=== PATIENT | male | born 1965 | race African-American/Black ===

== ENCOUNTER 2022-10-16 08:35 | Emergency (ER) | payer OTHER ==
[2022-10-16] VITALS (9 sets, daily range): BP systolic 92–142; BP diastolic 54–78
[~2022-10-16] VITALS: Ht 185.4 cm; Wt 127.0 kg
[~2022-10-16 08:35] MED LIST: AUGMENTIN875TAB PO
[2022-10-16] MEDS ORDERED: KEFLEX500 MG PO (10:27)
== END 2022-10-16 11:03 | disposition home or self-care (01) | DRG 605 ==
LOC: ED 08:35
DX: S91.115A Laceration without foreign body of left lesser toe(s) without damage to nail, initial encounter (principal); W45.8XXA Other foreign body or object entering through skin, initial encounter; Y92.002 Bathroom of unspecified non-institutional (private) residence as the place of occurrence of the external cause; S92.535A Nondisplaced fracture of distal phalanx of left lesser toe(s), initial encounter for closed fracture